=== PATIENT | female | born 1960 | race Caucasian/White ===

== ENCOUNTER 2019-07-06 15:17 | Emergency (ER) | payer OTHER ==
[~2019-07-06] VITALS: Ht 165.1 cm; Wt 66.0 kg
[~2019-07-06 15:17] MED LIST: IBUP-1561 PO; TRAM50TA PO
[2019-07-06 15:28] VITALS: BP 156/73; PULSE 73; RESP 20; Ht 165.1 cm; Wt 66.0 kg
[2019-07-06] MEDS ORDERED: KETOROLAC 30 MG INJ IM STA (15:57)
== END 2019-07-06 17:36 | disposition home or self-care (01) ==
LOC: FTE 15:17
DX: S33.5XXA Sprain of ligaments of lumbar spine, initial encounter (principal); W01.0XXA Fall on same level from slipping, tripping and stumbling without subsequent striking against object, initial encounter; Y92.009 Unspecified place in unspecified non-institutional (private) residence as the place of occurrence of the external cause
CPT/HCPCS: 72100; 96372; J1885; Z7502